=== PATIENT | female | born 1985 | race American Indian/Alaskan Native ===

== ENCOUNTER 2020-05-19 08:41 | Outpatient (CLI) | payer OTHER ==
[2020-05-19 09:11] VITALS: BP 118/61
[2020-05-19] MEDS ORDERED: LACTATED RINGERS 500 ML IV ONE (11:00)
--- NOTE | 2020-05-19 11:18 | Ultrasound Report ---
. ULTRASOUND OBSTETRIC LIMITED INDICATION / CLINICAL INFORMATION: bleeding , placenta/ heart tone.. Clinical Gestational Age (GA) in weeks, days: TECHNIQUE: Transabdominal. COMPARISON: None available FINDINGS: HEART RATE (beats per minute): 146 AMNIOTIC FLUID = adequate, as visualized. RIMA not measured. PRESENTATION: Transverse, head to maternal right. ADDITIONAL FINDINGS: Posterior placenta which is low lying, measuring 0.5 cm from the cervical os. No evidence of placental abruption. IMPRESSION: 1. Single live intrauterine . heart rate measures 146 bpm. 2. No acute abnormality identified. 3. Low-lying posterior placenta, measuring 0.5 cm from the cervical os. Recommend follow-up ultrasoun d between weeks 28 and 32. Signer Name: Darnell Hurst MD Signed: 05/19/2020 11:14 AM Workstation Name: [id number]
== END 2020-05-19 10:10 | disposition home or self-care (01) ==
LOC: APU 08:41 → TRG 08:41
PROVIDERS: ATTEND Obstetrics & Gynecology
DX: O46.8X2 Other antepartum hemorrhage, second trimester (principal); Z3A.22 22 weeks gestation of pregnancy
CPT/HCPCS: 59025; 76815

== ENCOUNTER 2020-09-16 01:02 | Inpatient (IN) | payer OTHER ==
[2020-09-16 02:26] LABS: Hematocrit 32.4 % (30.3-42.9); Hemoglobin 11.1 gm/dl (10.1-14.3); Mean Corpuscular HGB Conc 34 % (30-34); Mean Corpuscular Volume 92 fl (79-97); Platelet Count 180 K/mm3 (140-440); Red Blood Count 3.54 M/mm3 (3.65-5.03); Red Cell Distribution Width 14.4 % (13.2-15.2)
[2020-09-16 02:28] LABS: Bilirubin,Urine NEG (Negative); Blood,Urine NEG (Negative); Color,Urine Yellow (Yellow); Mucus,Urine 1+ /HPF; Urobilinogen,Urine < 2.0 mg/dL (<2.0)
[2020-09-16 02:49] LABS: Alanine Aminotransferase 12 units/L (7-56); Uric Acid 4.4 mg/dL (3.5-7.6)
[2020-09-16] MEDS ORDERED: LIDOCAINE (2%) 20 MG/1 ML VIAL 20 ML MDV INFILTRATI ONE (03:00)
[2020-09-16] MEDS ORDERED: fentaNYL 100 MCG/2 ML INJ IV PRN (03:00)
[2020-09-16] MEDS ORDERED: TERBUTALINE 1 MG/1 ML INJ SUB-Q PRN (03:00)
[2020-09-16] MEDS ORDERED: ONDANSETRON 4 MG/2 ML INJ IV PRN (03:00)
[2020-09-16] MEDS ORDERED: OXYTOCIN DRIP 30 UNITS/500 ML BAG IV SCH ×3 (03:00→10:00)
[2020-09-16] MEDS ORDERED: MINERAL OIL 30 ML ORAL LIQD PO PRN (03:00)
[2020-09-16] MEDS ORDERED: ePHEDrine SULFATE 50 MG/1 ML INJ IV PRN (03:00)
--- NOTE | 2020-09-16 03:08 | Ultrasound Report ---
ULTRASOUND OBSTETRIC LIMITED ULTRASOUND BIOPHYSICAL PROFILE INDICATION / CLINICAL INFORMATION: WELLBEING. RIMA. Clinical Gestational Age (GA): 39.4 weeks.days COMPARISON: None available. FINDINGS: BREATHING MOVEMENT = 2 GROSS BODY MOVEMENT = 2 TONE = 2 QUALITATIVE AMNIOTIC FLUID VOLUME = 2 TOTAL BIOPHYSICAL SCORE = 8/8 HEART RATE (beats per minute): 134 AMNIOTIC FLUID INDEX (cm) = 4.1 (normal = 7-24 cm). The deepest vertical pocket measures 2.6 cm. PRESENTATION: Cephalic. ADDITIONAL FINDINGS: None. IMPRESSION: 1. Biophysical Score = 8/8 2. RIMA 4.1 cm Signer Name: Td Quintero MD Signed: 09/16/2020 3:04 AM Workstation Name: [email or web address]
[2020-09-16] MEDS ORDERED: AMPICILLIN/NS 2 GM/100 ML 2 GM/100 ML BAG IV ONE (03:47)
[2020-09-16] MEDS: LACTATED RINGERS 1,000 ML IV SCH ×4 (03:56→12:23)
--- NOTE | 2020-09-16 07:51 | History and Physical Report ---
History of Present Illness Date of examination: 09/16/20 Date of admission: 09/16/20 03:04 Chief complaint: "I've been having contractions since 2099.' History of present illness: 35 y/o presented @ 39.4 wks with c/o uc since 2099. She denies LOF admits to small amt of vag bleeding x 2 episodes, and active FM. Pt initiated her pnc at [facility] ob-hammerer tab in early preg and had no complications per pt. Pt admitted to [facility] and states she has been taking Valtrex for same. Pt's BPP was 6/8 with an RIMA of 4.1. Her b/p was slightly elevated at 140s/90s. Pt denied medley, visual problems, or epigastric pain. She was admitted to L&D for an IOL r/t PIH and oligo. Rom plus was neg. Pt's PN records were not available. Past History Past Medical History: no pertinent history Past Surgical History: no surgical history [employer] COUNSELOR History: herpes Family/Genetic History: hypertension, stroke, cancer Social history: no significant social history, full code - Obstetrical History Expected Date of Delivery: 09/19/20 Actual Gestation: 39 Week(s) 4 Day(s) : 3 Para: 2 Hx # Term Pregnancies: 2 Number of Living Children: 2 Medications and Allergies Allergies Allergy/AdvReac Type Severity Reaction Status Date / Time No Known Allergies Allergy Unverified 05/19/20 09:22 Home Medications Medication Instructions Recorded Confirmed Last Taken Type 147/Iron/Folic Acid 1 caplet PO DAILY 09/16/20 09/16/20 09/15/20 08:46 History 1 Active Meds: Active Medications Ephedrine Sulfate (Ephedrine Sulfate 50 Mg/1 Ml Inj) 10 mg IV Q2M PRN PRN Reason: Hypotension Fentanyl (Fentanyl 100 Mcg/2 Ml Inj) 100 mcg IV Q2H PRN PRN Reason: Pain,Severe (7-10) LABOR PAIN Last Admin: 09/16/20 04:36 Dose: 100 mcg Documented by: Lactated Ringer's (Lactated Ringers) 1,000 mls @ 125 mls/hr IV DIRECT MITCH Last Admin: 09/16/20 03:56 Dose: 125 mls/hr Documented by: Oxytocin/Sodium Chloride (Pitocin/Ns 30 Unit/500ml) 30 units in 500 mls @ 40 mls/hr IV TITR MITCH; Protocol Mineral Oil (Mineral Oil 30 Ml Oral Liqd) 30 ml PO QHS PRN PRN Reason: Constipation Ondansetron HCl (Ondansetron 4 Mg/2 Ml Inj) 4 mg IV Q8H PRN PRN Reason: Nausea And Vomiting Terbutaline Sulfate (Terbutaline 1 Mg/1 Ml Inj) 0.25 mg SUB-Q ONCE PRN PRN Reason: Hyperstimulation/Hypertonicity Review of Systems All systems: negative Eyes: deferred Ears, nose, mouth and throat: deferred Breasts: normal Genitourinary: normal appearance Rectal Exam: deferred Psychiatric: anxiety - Vital Signs Vital signs: Vital Signs Pulse BP 74 149/94 09/16/20 01:25 09/16/20 01:25 Temp Pulse Resp BP Pulse Ox 98.5 F 69 16 139/92 97 09/16/20 07:39 09/16/20 07:44 09/16/20 07:39 09/16/20 07:32 09/16/20 07:44 - Physical Exam Breasts: Positive: normal Abdomen: Positive: normal appearance, soft, normal bowel sounds Genitourinary (Female): Positive: normal external genitalia, normal perenium Vulva: both: normal Vagina: Positive: normal moisture Uterus: Positive: enlarged, normal contour, other (GRAVID) Anus/Rectum: Positive: normal perianal skin Extremities: Positive: normal - Obstetrical FHR: category 1 Uterine Contraction Monitor Mode: External Cervical Dilatation: 2 Cervical Effacement Percentage: 60 station: -3 Uterine Contraction Pattern: Irregular Uterine Tone Measurement Phase: Resting Uterine Contraction Intensity: Mild Results Result Diagrams: 09/16/20 02:10 09/16/20 02:10 Abnormal lab results 09/16/20 09/16/20 Range/Units 02:10 02:10 RBC 3.54 L (3.65-5.03) M/mm3 Creatinine 0.5 L (0.6-1.2) mg/dL All other labs normal. Assessment and Plan A: IUP@ 39.4 wks PIH, Oligo RIMA (4.1) neg ROM plus BPP 6/8 HSV II p: Admit to L&D for IOL PIH labs Continuous monitoring Pain med/Epidural prn Obtain records from [facility] Anticipate Dr Dominguez consulted
[2020-09-16] MEDS ORDERED: BUTORPHANOL 2 MG/1 ML INJ IV PRN ×2 (09:06)
[2020-09-16] MEDS ORDERED: LIDOCAINE (2%) 20 MG/1 ML VIAL 20 ML MDV INFILTRATI NR (09:06)
[2020-09-16 10:04] LABS: Hematocrit 31.7 % (30.3-42.9); Hemoglobin 10.6 gm/dl (10.1-14.3)
--- NOTE | 2020-09-16 10:11 | Progress Note ---
Labor Epidural - Labor Epidural Start Time: 10:30 Stop Time: 10:35 Performed by:: EDGAR ROSS Procedure: Patient is requesting a laboring epidural for laboring pain. Patient IDed, H&P reviewed, all questions and concerns were answered, and consent was signed. Timeout was performed at bedside. Patient in sitting position. Sterile prep and drape was performed. [3] ml of 1% lidocaine skin wheal at L[3]- L [4]. 18- gauge Tuohy epidural needle was advanced to loss of resistance with saline technique 6cm. Negative CSF negative blood. Epidural catheter advanced to [10] centimeters. [NEGATIVE] Aspiration [NEGATIVE] test dose 1.5% Lidocaine with Epi 5ml. Sterile dressing applied. Patient tolerated procedure.
--- NOTE | 2020-09-16 10:11 | Anesthesia Consultation ---
Anesthesia Consult and Med Hx Date of service: 09/16/20 - Airway Anesthetic Teeth Evaluation: Good ROM Head & Neck: Adequate Mental/Hyoid Distance: Adequate Mallampati Class: Class II Intubation Access Assessment: Good - Pulmonary Exam CTA: Yes - Cardiac Exam Cardiac Exam: RRR - Pre-Operative Health Status ASA Pre-Surgery Classification: ASA3 Proposed Anesthetic Plan: Epidural - Pulmonary Hx Smoking: No Hx Asthma: No Hx Respiratory Symptoms: No SOB: No COPD: No Home Oxygen Therapy: No Hx Pneumonia: No Hx Sleep Apnea: No - Cardiovascular System Hx Hypertension: No Hx Coronary Artery Disease: No Hx Heart Attack/AMI: No Hx Angina: No Hx Percutaneous Transluminal Coronary Angioplasty (PTCA): No Hx Cardia Arrhythmia: No Hx Pacemaker: No Hx Internal Defibrillator: No Hx Valvular Heart Disease: No Hx Heart Murmur: No Hx Peripheral Vascular Disease: No - Central Nervous System Hx Neuromuscular Disorder: No Hx Seizures: No CVA: No Hx Back Pain: Yes (swelling noted) Hx Psychiatric Problems: No - Gastrointestinal Hx Ulcer: No Hx Gastroesophageal Reflux Disease: Yes - Endocrine Hx Renal Disease: No Hx End Stage Renal Disease: No Hx Cirrhosis: No Hx Liver Disease: No Hx Insulin Dependent Diabetes: No Hx Non-Insulin Dependent Diabetes: No Hx Thyroid Disease: No Hx Hypothyroidism: No Hx Hyperthyroidism: No - Hematic Hx Anemia: No Hx Sickle Cell Disease: No - Other Systems Hx Alcohol Use: No Hx Substance Use: No Hx Cancer: No Hx Obesity: Yes
[2020-09-16] MEDS ORDERED: NALOXONE 2 MG/2 ML INJ IV PRN (11:00)
[2020-09-16] MEDS ORDERED: fentaNYL-BUPIV 2 MCG/ML-0.125% 200 MCG/100 ML BAG EPIDURAL SCH (11:00)
--- NOTE | 2020-09-16 11:50 | Event Note ---
Date: 09/16/20 Assumed care of patient; SVE at 11:30 AM: .
[2020-09-16] MEDS: ePHEDrine SULFATE 50 MG/1 ML INJ IV PRN ×2 (12:22→12:26)
[2020-09-16] MEDS ORDERED: WITCH HAZEL/ GLYCERIN PAD TP PRN (18:09)
[2020-09-16] MEDS ORDERED: LANOLIN/ZINC/DIMETHICONE (LANSINOH) 7 GM TP PRN (18:09)
--- NOTE | 2020-09-16 18:12 | Procedure Note ---
OB Delivery Note - Delivery Date of Delivery: 09/16/20 Surgeon: SILVA BERRIOS Estimated blood loss: 200cc - Vaginal Delivery presentation: vertex Delivery position: OA Intrapartum events: meconium Delivery induction: oxytocin Delivery augmentation: rupture of membranes Delivery monitor: external FHT, external uterine Route of delivery: Delivery placenta: spontaneous Delivery cord: 3 umbilical vessels Episiotomy: none Delivery laceration: none Anesthesia: epidural Delivery comments: Spontaneous vaginal delivery at 17:37 of liveborn male infant weighing 6 lb. 4 oz. over intact perineum with apgars of 8/9. was atraumatic; no nuchal cord. Meconium stained amniotic fluid. Baby was vigorous at . Baby was placed skin to skin with mom immediately after delivery and was dried and suctioned with bulb syringe. Spontaneous cry and respirations. 3 vessel cord double clamped and cut. Baby was taken to radiant warmer for further suctioning. Cord blood obtained. Spontaneous delivery of intact placenta and membranes; membranes trailing. Pitocin to IV fluids; EBL 200 cc. Fundus firm and midline. Vaginal sweep negative. Sponge count correct. No lacerations noted. Pelvic US ordered to check for retained placenta/accessory lobe due to trailing membranes.
--- NOTE | 2020-09-16 19:32 | Ultrasound Report ---
Limited pelvic ultrasound INDICATION: Evaluate for retained products FINDINGS: Uterus is enlarged measuring 20.7 x 10.9 x 12.4 cm. Endometrial is thickened measuring 21.8 mm. There is increased flow within the endometrium and uterus. Bilateral adnexa appear normal. IMPRESSION: Uterus is enlarged. There is increased flow within the endometrium concerning for retained products o f conception. Signer Name: Sumit Hays MD Signed: 09/16/2020 7:28 PM Workstation Name: [id number]
[2020-09-16] MEDS: FERROUS SULFATE 325 MG TAB PO SCH (22:04)
[2020-09-16] MEDS: IBUPROFEN 600 MG TAB PO SCH (22:04)
[2020-09-17] MEDS: IBUPROFEN 600 MG TAB PO SCH ×4 (00:27→21:12)
--- NOTE | 2020-09-17 06:45 | Progress Note ---
Assessment and Plan A: day 1 S/P . Mild anemia. Possible abnormal pelvic US. P: Patient to take oral iron supplements. Repeat H&H and pelvic US. Will consult with re: this patient. Subjective - Subjective Date of service: 09/17/20 Principal diagnosis: day 1 S/P Interval history: After delivery US was obtained due to trailing membranes noted at delivery. US tech stated (at time of US) that there were no retained products. Final US report now available and states "increased flow within the uterus concerning for retained products." Patient denies pelvic pain or heavy bleeding. Pt. reports lochia is light. With history of HTN and occasional mild BP elevation, want to avoid PO Methergine series if possible. Will consult with Dr. Dominguez and will repeat pelvic US and H/H today. Patient reports: appetite normal, voiding normally, pain well controlled, flatus, ambulating normally, no dizzy ambulation, no nauseated : doing well Objective - Vital Signs Latest vital signs: Vital Signs Temp Pulse Resp BP Pulse Ox 09/17/20 05:42 18 09/17/20 01:20 98.2 F 20 131/60 09/16/20 23:04 18 09/16/20 22:04 18 09/16/20 20:11 98.4 F 73 20 140/83 100 09/16/20 19:25 74 99 09/16/20 19:23 97.7 F 14 09/16/20 19:22 60 132/77 09/16/20 19:20 82 97 09/16/20 19:15 64 99 09/16/20 19:10 67 98 09/16/20 19:08 63 140/79 09/16/20 19:05 68 98 09/16/20 19:00 66 98 09/16/20 18:55 82 99 09/16/20 18:53 83 137/88 09/16/20 18:50 85 98 09/16/20 18:45 75 97 09/16/20 18:40 83 98 09/16/20 18:38 71 135/80 09/16/20 18:35 64 96 09/16/20 18:30 65 97 09/16/20 18:25 71 96 09/16/20 18:23 72 132/78 09/16/20 18:20 73 96 09/16/20 18:15 76 96 09/16/20 18:10 81 95 09/16/20 18:08 73 132/74 09/16/20 18:05 88 96 09/16/20 18:00 98.1 F 88 98 09/16/20 17:55 80 99 09/16/20 17:54 73 126/73 09/16/20 17:53 70 122/62 09/16/20 17:50 72 100 09/16/20 17:45 78 100 09/16/20 17:40 87 100 09/16/20 17:38 132/78 09/16/20 17:35 89 100 09/16/20 17:30 87 100 09/16/20 17:25 81 100 09/16/20 17:24 78 135/79 09/16/20 17:20 71 100 09/16/20 17:15 65 100 09/16/20 17:10 64 100 09/16/20 17:08 64 146/82 09/16/20 17:05 70 100 09/16/20 17:00 62 100 09/16/20 16:55 98.1 F 63 100 09/16/20 16:53 68 143/88 09/16/20 16:50 64 100 09/16/20 16:45 77 100 09/16/20 16:40 70 100 09/16/20 16:38 69 139/84 09/16/20 16:35 70 100 09/16/20 16:30 85 100 09/16/20 16:25 69 100 09/16/20 16:24 66 141/88 09/16/20 16:20 71 100 09/16/20 16:15 76 100 09/16/20 16:10 76 131/78 100 09/16/20 16:05 77 100 09/16/20 16:00 68 100 09/16/20 15:55 67 100 09/16/20 15:53 74 125/76 09/16/20 15:50 68 100 09/16/20 15:45 71 100 09/16/20 15:40 70 100 09/16/20 15:38 68 133/74 09/16/20 15:35 71 100 09/16/20 15:30 79 100 09/16/20 15:25 69 100 09/16/20 15:23 65 127/78 04/30/21 15:20 67 100 09/16/20 15:15 73 100 09/16/20 15:10 75 100 09/16/20 15:09 67 119/74 09/16/20 15:05 66 100 09/16/20 15:00 65 100 09/16/20 14:55 70 100 09/16/20 14:54 63 127/73 09/16/20 14:50 74 100 09/16/20 14:45 63 100 09/16/20 14:40 65 100 09/16/20 14:39 65 121/81 09/16/20 14:35 76 100 09/16/20 14:30 98.5 F 63 100 09/16/20 14:25 66 100 09/16/20 14:23 68 119/69 09/16/20 14:20 66 100 09/16/20 14:15 67 100 09/16/20 14:10 74 100 09/16/20 14:05 63 100 09/16/20 14:00 75 116/61 100 09/16/20 13:59 84 164/68 09/16/20 13:55 73 100 09/16/20 13:50 60 100 09/16/20 13:45 58 L 100 09/16/20 13:40 57 L 100 09/16/20 13:38 54 L 111/63 09/16/20 13:35 57 L 100 09/16/20 13:30 57 L 100 09/16/20 13:25 56 L 100 09/16/20 13:23 57 L 108/61 09/16/20 13:21 58 L 109/57 09/16/20 13:20 56 L 100 09/16/20 13:15 56 L 100 09/16/20 13:10 61 100 09/16/20 13:08 57 L 104/58 09/16/20 13:05 62 100 09/16/20 13:00 63 100 09/16/20 12:55 62 100 09/16/20 12:52 66 122/72 09/16/20 12:50 65 100 09/16/20 12:45 64 100 09/16/20 12:41 63 118/71 09/16/20 12:40 66 100 09/16/20 12:39 71 104/66 09/16/20 12:37 74 113/68 09/16/20 12:35 68 114/69 100 09/16/20 12:33 61 120/74 09/16/20 12:31 72 110/70 09/16/20 12:30 70 100 09/16/20 12:29 71 110/69 09/16/20 12:27 63 109/67 09/16/20 12:25 61 112/69 100 09/16/20 12:23 58 L 113/58 09/16/20 12:20 61 100 09/16/20 12:19 64 103/64 09/16/20 12:17 71 105/66 09/16/20 12:15 57 L 100 09/16/20 12:10 67 100 09/16/20 12:05 58 L 100 09/16/20 12:01 61 134/85 09/16/20 12:00 60 100 09/16/20 11:55 60 100 09/16/20 11:50 69 100 09/16/20 11:46 67 138/89 09/16/20 11:45 70 100 09/16/20 11:40 76 100 09/16/20 11:35 67 100 09/16/20 11:31 74 138/90 09/16/20 11:30 80 100 09/16/20 11:25 89 99 09/16/20 11:20 101 H 99 09/16/20 11:16 83 126/71 09/16/20 11:02 104 H 134/83 98 09/16/20 10:57 84 97 09/16/20 10:52 94 H 98 09/16/20 10:47 96 H 141/93 99 09/16/20 10:42 85 99 09/16/20 10:33 100 H 89 09/16/20 10:31 111 H 164/74 09/16/20 10:30 109 H 98 09/16/20 10:25 98 H 99 09/16/20 10:23 95 H 88 09/16/20 10:20 103 H 97 09/16/20 10:17 104 H 142/92 09/16/20 10:15 88 99 09/16/20 10:10 97 H 98 09/16/20 10:05 86 98 09/16/20 10:01 82 159/92 09/16/20 10:00 91 H 98 09/16/20 09:55 78 99 09/16/20 09:50 77 99 09/16/20 09:45 79 100 09/16/20 09:42 85 88 09/16/20 09:40 84 99 09/16/20 09:35 76 99 09/16/20 09:32 77 132/89 09/16/20 09:30 97 H 98 09/16/20 09:26 86 85 09/16/20 09:25 76 L 09/16/20 09:16 90 138/98 09/16/20 09:01 77 135/85 09/16/20 09:00 98.2 F 76 97 09/16/20 08:55 95 H 98 09/16/20 08:46 84 143/90 09/16/20 08:44 82 98 09/16/20 08:39 77 98 09/16/20 08:34 85 99 09/16/20 08:31 74 146/88 09/16/20 08:29 66 97 09/16/20 08:24 69 96 09/16/20 08:19 69 96 09/16/20 08:17 65 156/88 09/16/20 08:14 73 97 09/16/20 08:09 68 98 09/16/20 08:04 71 96 09/16/20 08:01 100 H 131/90 09/16/20 07:59 72 98 09/16/20 07:54 74 98 09/16/20 07:49 84 98 09/16/20 07:46 80 128/90 09/16/20 07:44 69 97 09/16/20 07:39 98.5 F 67 16 98 09/16/20 07:34 73 99 09/16/20 07:32 73 139/92 09/16/20 07:29 68 99 09/16/20 07:24 69 98 09/16/20 07:19 83 99 09/16/20 07:14 82 98 09/16/20 07:06 72 100 09/16/20 07:01 80 141/87 97 09/16/20 07:00 81 149/88 09/16/20 06:58 83 94 09/16/20 06:56 81 98 09/16/20 06:51 66 97 09/16/20 06:46 75 154/95 97 Intake and Output 04/30/21 04/30/21 05/01/21 15:59 23:59 07:59 Intake Total 993.333 480 240 Output Total 900 1050 Balance 93.333 -570 240 Intake: IV 593.333 Lactated Ringers 1,000 ml 591.666 @ 125 mls/hr IV DIRECT MITCH Rx#:[id number] PITOCin/NS 30 UNIT/500ML 1.667 30 units In 500 ml @ 2 mls/hr IV TITR MITCH Rx#: [id number] Oral 400 480 240 Output: Urine 900 1050 Indwelling Catheter 800 1050 Uretheral (Leroy) 100 Other: Total, Intake Amount 400 480 240 Total, Output Amount 700 350 # Voids Indwelling Catheter 1 Void 1 2 Estimated Blood Loss 200 - Exam Abdomen: Present: normal appearance, soft. Absent: distention, tenderness, guarding, rigidity Uterus: Present: normal, firm, fundal height below umbilicus. Absent: bogginess, tenderness Extremities: Present: normal. Absent: tenderness, edema - Labs Labs: Abnormal lab results 09/16/20 Range/Units 02:10 Lactate Dehydrogenase 183 H (91-180) units/L
[2020-09-17] MEDS: HYDROcodone/ACETAMINOPHEN 5-325 MG TAB PO PRN ×2 (08:40→16:54)
--- NOTE | 2020-09-17 12:17 | Post Anesthesia Evaluation ---
- Post Anesthesia Evaluation Patient Participated: Yes Airway Patent: Yes Stable Respiratory Function: Yes Nausea/Vomiting: No Temp > 96.8F: Yes Pain Manageable: Yes Adequeate Hydration: Yes Anesthesia Complications: No Block Receding Appropriately: Yes Patient on Ventilator: No
[2020-09-17 14:58] LABS: Hematocrit 28.6 % (30.3-42.9); Hemoglobin 9.7 gm/dl (10.1-14.3)
--- NOTE | 2020-09-17 15:14 | Ultrasound Report ---
Pelvic ultrasound INDICATION: Evaluate for retained products FINDINGS: There is a complex lesion within the left aspect of the uterus with internal septation and thickening measuring 1.9 x 4.5 cm. The endometrium is thickened measuring 1.4 cm. No focal area of fl ow within the endometrium. Visualized ovaries appear normal. IMPRESSION: 1. Complex cystic mass within the uterus measuring 1.9 x 4.5 cm. Findings are nonspecific however cli nical correlation. 2. Endometrium is thickened. Retained products cannot be excluded however no increased flow within th e endometrium. Signer Name: Sumit Hays MD Signed: 09/17/2020 3:09 PM Workstation Name: [id number]
[2020-09-17] MEDS: FERROUS SULFATE 325 MG TAB PO SCH (21:12)
[2020-09-18] MEDS: IBUPROFEN 600 MG TAB PO SCH ×4 (06:14→22:44)
[2020-09-18] MEDS: FERROUS SULFATE 325 MG TAB PO SCH ×2 (08:32→22:43)
--- NOTE | 2020-09-18 09:39 | Progress Note ---
Assessment and Plan A: day 2 S/P . Possible retained placenta (abnormal pelvic US). Anemia. Heart murmur. PIH: stable BPs. P: NPO. Dr. Dominguez is coming in around noon today to perform D&C procedure due to possible retained products. Discussed possible retained products with patient and need for D&C. Patient states she is in agreement with this POC. Informed patient's nurse and L&D. L&D to put patient on OR schedule and notify anesthesia. Heart murmur is asymptomatic; patient wants to follow up as outpatient once she is discharged. Continue iron supplementation. Subjective - Subjective Date of service: 09/18/20 Principal diagnosis: day 2 S/P Interval history: Repeat US report shows "complex cystic mass within the uterus measuring 1.9 cm x 4.5 cm, findings are nonspecific, retained products cannot be excluded however no increased flow within the endometrium." Patient denies heavy bleeding. Consulted with Dr. Dominguez re: this patient and he states he is going to perform D&C for patient today. Informed patient and nurse and patient is now NPO. Patient reports: appetite normal, voiding normally, pain well controlled, flatus, ambulating normally, no bowel movement [place]: doing well Objective - Vital Signs Latest vital signs: Vital Signs Temp Pulse Resp BP Pulse Ox 09/18/20 07:55 98.5 F 83 20 124/70 95 09/18/20 06:14 18 09/18/20 00:46 98.0 F 81 20 133/82 96 09/17/20 22:12 18 09/17/20 21:12 18 09/17/20 16:08 98.6 F 79 18 128/77 97 09/17/20 11:54 98.1 F 75 18 149/91 97 Intake and Output 09/17/20 09/18/20 09/18/20 23:59 07:59 15:59 Intake Total 480 240 Balance 480 240 Intake: Oral 480 240 Other: Total, Intake Amount 240 240 # Voids Void 1 1 - Exam Cardiovascular: Present: Regular rate, Other (murmur heard) Lungs: Present: Clear to auscultation Abdomen: Present: normal appearance, soft. Absent: tenderness, guarding, rigidity Uterus: Present: normal, firm, fundal height below umbilicus. Absent: bogginess, tenderness - Labs Labs: Abnormal lab results 09/17/20 Range/Units 13:29 Hgb 9.7 L (10.1-14.3) gm/dl Hct 28.6 L (30.3-42.9) %
[2020-09-18] MEDS: DOCUSATE SODIUM 100 MG CAP PO SCH ×2 (10:21→22:44)
[2020-09-18] MEDS ORDERED: LIDOCAINE MPF (2%) 20 MG/1 ML VIAL 5 ML ONE (16:47)
[2020-09-18] MEDS ORDERED: HYDROmorphone 1 MG/1 ML INJ ONE (16:47)
[2020-09-18] MEDS ORDERED: propofoL 200 MG/20 ML VIAL IV ONE (16:47)
[2020-09-18] MEDS ORDERED: ONDANSETRON 4 MG/2 ML INJ IV PRN ×2 (16:58→17:48)
[2020-09-18] MEDS ORDERED: fentaNYL 100 MCG/2 ML INJ IV PRN (16:58)
[2020-09-18] MEDS ORDERED: KETOROLAC 30 MG/1 ML INJ IV PRN (16:59)
--- NOTE | 2020-09-18 17:03 | Anesthesia Consultation ---
Anesthesia Consult and Med Hx Date of service: 09/18/20 - Airway Anesthetic Teeth Evaluation: Good ROM Head & Neck: Adequate Mental/Hyoid Distance: Adequate Mallampati Class: Class II Intubation Access Assessment: Probably Good - Pre-Operative Health Status ASA Pre-Surgery Classification: ASA2 Proposed Anesthetic Plan: General - Pulmonary Hx Respiratory Symptoms: No - Cardiovascular System Hx Hypertension: Yes (PIH; BP well controlled) Hx Heart Attack/AMI: No - Central Nervous System CVA: No Hx Back Pain: Yes - Gastrointestinal Hx Gastroesophageal Reflux Disease: Yes - Endocrine Hx Renal Disease: No Hx Liver Disease: No Hx Insulin Dependent Diabetes: No Hx Non-Insulin Dependent Diabetes: No Hx Thyroid Disease: No - Hematic Hx Anemia: Yes - Additional Comments Anesthesia Medical History Comments: PPD2 s/p scheduled for D&C for possible retained placenta.
--- NOTE | 2020-09-18 17:05 | Anesthesia Day of Surgery ---
Anesthesia Day of Surgery - Day of Surgery Patient Examined: Yes Patient H&P Reviewed: Yes Patient is NPO: Yes
[2020-09-18] MEDS ORDERED: LACTATED RINGERS 1,000 ML ONE (17:17)
[2020-09-18] MEDS ORDERED: ceFAZolin 1 GM VIAL ONE ×2 (17:32→17:34)
[2020-09-18] MEDS ORDERED: ONDANSETRON 4 MG/2 ML INJ ONE (17:42)
[2020-09-18] MEDS ORDERED: KETOROLAC 30 MG/1 ML INJ ONE (17:42)
[2020-09-18] MEDS ORDERED: diphenhydrAMINE 25 MG CAP PO PRN (17:48)
[2020-09-18] MEDS ORDERED: MAGNESIUM HYDROXIDE (MOM) ORAL LIQD UDC PO PRN (17:48)
[2020-09-18] MEDS ORDERED: HYDROcodone/ACETAMINOPHEN 5-325 MG TAB PO PRN (17:48)
[2020-09-18] MEDS ORDERED: WITCH HAZEL/ GLYCERIN PAD TP PRN (17:48)
[2020-09-18] MEDS ORDERED: PROMETHAZINE 25 MG TAB PO PRN (17:48)
[2020-09-18] MEDS ORDERED: LANOLIN/ZINC/DIMETHICONE (LANSINOH) 7 GM TP PRN (17:48)
[2020-09-18] MEDS ORDERED: PROMETHAZINE 25 MG RECT SUPP PR PRN (17:48)
--- NOTE | 2020-09-18 17:55 | Procedure Note ---
Date of procedure: 09/18/20 Pre-op diagnosis: retained placenta Post-op diagnosis: same Procedure: The patient was taken to the OR for removal of retained placenta. Preoperative diagnosis retained placenta. Postop diagnosis retained placenta. Anesthesia General with LMA. Drains in and out catheterization is History of blood loss 150 cc specimen blood and tissue from inside endometrial cavity. Procedure was a D&C suction curettage the D&C was done with a large curette. Complications none. Findings patient was found to have a somewhat boggy uterus was anteflexed cervix was slightly dilated. Uterus and cervix were grasped with ring forceps using large curette to curette the uterus and to return uterus was clean. We also did suction curettage to remove any tissue that was inside endometrial cavity patient had minimal bleeding at the end of procedure she tolerated procedure well. Anesthesia: GETA (LMA) Surgeon: MARTÍNEZ PERKINS Estimated blood loss: other (150CCS) Urine output: 50 Pathology: list (ENDOMETRIAL CURRETTINGS) Specimen disposition: to lab Condition: stable Disposition: PACU
[2020-09-18] MEDS ORDERED: SODIUM CHLORIDE 0.9% IRR 1,500 ML BOTTLE IR ONE (18:01)
[2020-09-18] MEDS ORDERED: HYDROmorphone 1 MG/1 ML INJ IV PRN (18:09)
--- NOTE | 2020-09-18 18:38 | Post Anesthesia Evaluation ---
- Post Anesthesia Evaluation Patient Participated: Yes Airway Patent: Yes Stable Respiratory Function: Yes Nausea/Vomiting: No Temp > 96.8F: Yes Pain Manageable: Yes Adequeate Hydration: Yes Anesthesia Complications: No
[2020-09-19] MEDS: IBUPROFEN 600 MG TAB PO SCH ×2 (05:20→05:54)
[2020-09-19] MEDS: FERROUS SULFATE 325 MG TAB PO SCH (09:28)
[2020-09-19] MEDS: DOCUSATE SODIUM 100 MG CAP PO SCH (09:31)
[2020-09-19 11:46] LABS: Basophils % (Auto) 0.5 % (0.0-1.8); Eosinophils # (Auto) 0.3 K/mm3 (0.0-0.4); Eosinophils % (Auto) 2.5 % (0.0-4.3); Hematocrit 29.9 % (30.3-42.9); Lymphocytes # (Auto) 1.7 K/mm3 (1.2-5.4); Lymphocytes % (Auto) 17.3 % (13.4-35.0); Mean Corpuscular HGB Conc 34 % (30-34); Mean Corpuscular Volume 94 fl (79-97); Monocytes # (Auto) 0.6 K/mm3 (0.0-0.8); Monocytes % (Auto) 5.8 % (0.0-7.3); Platelet Count 197 K/mm3 (140-440); Red Blood Count 3.19 M/mm3 (3.65-5.03); Red Cell Distribution Width 15.2 % (13.2-15.2)
--- NOTE | 2020-09-19 13:18 | Progress Note ---
Assessment and Plan A: PP Day # 3 Preeclampsia s/p Retained Placenta P: Follow Routine Orders D/C home today per patient request RTO in 2 Weeks Subjective - Subjective Date of service: 09/19/20 Principal diagnosis: day 2 S/P Patient reports: appetite normal, voiding normally, pain well controlled, flatus, bowel movement, ambulating normally, other (Denies HAs, visual changes, epigastic pain , N&V, and dizziness. States she is not having any vaginal bleeding at the moment) : doing well, bottle feeding (and ) Objective - Vital Signs Latest vital signs: Vital Signs Temp Pulse Resp BP BP Pulse Ox 09/19/20 09:29 16 09/19/20 09:14 98.4 F 80 18 142/81 94 09/19/20 05:54 14 09/19/20 05:24 98.2 F 77 18 116/71 95 09/19/20 01:27 98.6 F 78 18 118/69 95 09/18/20 22:44 14 09/18/20 18:45 98.0 F 80 15 148/80 99 09/18/20 18:40 98.0 F 70 15 124/75 96 09/18/20 18:25 69 17 120/83 98 09/18/20 18:19 15 09/18/20 18:10 73 15 140/82 100 09/18/20 18:05 70 18 135/80 100 09/18/20 18:00 80 17 136/81 99 09/18/20 17:53 97.0 F L 87 16 141/93 99 09/18/20 16:34 98.8 F 83 18 135/83 97 09/18/20 16:10 98.8 F 77 16 135/83 97 Intake and Output 09/18/20 09/19/20 09/19/20 22:59 06:59 14:59 Intake Total 100 660 Output Total 50 Balance 50 660 Intake: IV 100 Oral 0 Intake, Free Water 660 Output: Urine 50 Other: Total, Intake Amount 0 # Voids Void 3 1 - Exam Breasts: Present: normal Cardiovascular: Present: Regular rate Lungs: Present: Clear to auscultation, Normal air movement Abdomen: Present: normal appearance, soft, normal bowel sounds Uterus: Present: normal, firm, fundal height below umbilicus Extremities: Present: normal - Labs Labs: Abnormal lab results 09/19/20 Range/Units 11:04 RBC 3.19 L (3.65-5.03) M/mm3 Hgb 10.0 L (10.1-14.3) gm/dl Hct 29.9 L (30.3-42.9) % Seg Neutrophils % 73.9 H (40.0-70.0) %
--- NOTE | 2020-09-19 13:19 | Discharge Summary ---
Providers - Providers Date of Admission: 09/16/20 03:04 Date of discharge: 09/19/20 Attending physician: OZZY MUNROE JR, MD Primary care physician: OZZY MUNROE JR, MD Hospitalization Reason for admission: active labor Delivery: Episiotomy: none Laceration: none Other procedures: none complications: none Discharge diagnosis: IUP at term delivered baby: male Condition at discharge: Good Disposition: [id number]-01 TO HOME OR SELFCARE Plan - Provider Discharge Summary Activity: routine, no sex for 6 weeks, no heavy lifting 4 weeks, no strenuous exercise Diet: routine Instructions: routine Additional instructions: [] Smoking cessation referral if applicable(refer to patient education folder for contact #) [] Refer to [facility] Booklet Call your doctor immediately for: * Fever > 100.5 * Heavy vaginal bleeding ( >1 pad per hour) * Severe persistent headache * Shortness of breath * Reddened, hot, painful area to leg or breast * Drainage or odor from incision. * Keep incision clean and dry at all times and follow doctor's instructions regarding bathing/showering - Follow up plan Follow up: OZZY MUNROE JR, MD [Primary Care Provider] - 14 Days
[2020-09-19 15:00] VITALS: BP 133/91
== END 2020-09-19 15:47 | disposition left against medical advice (07) | DRG 767 ==
LOC: TRG 01:02 → APU 01:03 → TRG 03:04 → LD 07:49 → OB 20:26
PROVIDERS: ADMIT Obstetrics & Gynecology; ATTEND Obstetrics & Gynecology
PROC: 10E0XZZ Delivery of Products of Conception, External Approach (ICD-10-PCS; principal; 2020-09-16)
PROC: 3E033VJ Introduction of Other Hormone into Peripheral Vein, Percutaneous Approach (ICD-10-PCS; 2020-09-16)
PROC: 00HU33Z Insertion of Infusion Device into Spinal Canal, Percutaneous Approach (ICD-10-PCS; 2020-09-16)
PROC: 3E0R3BZ Introduction of Anesthetic Agent into Spinal Canal, Percutaneous Approach (ICD-10-PCS; 2020-09-16)
PROC: 10D17ZZ Extraction of Products of Conception, Retained, Via Natural or Artificial Opening (ICD-10-PCS; 2020-09-18)
DX: O99.214 Obesity complicating childbirth (principal); O41.03X0 Oligohydramnios, third trimester, not applicable or unspecified; O98.32 Other infections with a predominantly sexual mode of transmission complicating childbirth; Z20.822 Contact with and (suspected) exposure to COVID-19; A60.09 Herpesviral infection of other urogenital tract; K21.9 Gastro-esophageal reflux disease without esophagitis; O77.0 Labor and delivery complicated by meconium in amniotic fluid; O90.81 Anemia of the puerperium; O14.95 Unspecified pre-eclampsia, complicating the puerperium; Z3A.39 39 weeks gestation of pregnancy; Z37.0 Single live birth; Z82.49 Family history of ischemic heart disease and other diseases of the circulatory system; Z82.3 Family history of stroke; Z80.9 Family history of malignant neoplasm, unspecified
CPT/HCPCS: 36415; 59025; 76815; 76819; 76857; 81001; 82565; 83615; 84112; 84450; 84460; 84550; 85014; 85018; 85025; 85027; 86592; 86850; 86900; 86901; 88305; 88307; G0378; J0290; J0690; J1170; J1885; J2405; J2590; J2704; J3010; J7120; U0003

== ENCOUNTER 2020-11-18 12:39 | Emergency (ER) | payer OTHER ==
[2020-11-18 14:38] LABS: Bilirubin,Urine NEG (Negative); Blood,Urine LG (Negative); Color,Urine Yellow (Yellow); Mucus,Urine FEW /HPF; Protein,Urine <15 mg/dL mg/dL (Negative); Urobilinogen,Urine < 2.0 mg/dL (<2.0)
[2020-11-18 14:50] LABS: Basophils # (Auto) 0.1 K/mm3 (0.0-0.1); Eosinophils # (Auto) 0.5 K/mm3 (0.0-0.4); Eosinophils % (Auto) 8.4 % (0.0-4.3); Hematocrit 36.5 % (30.3-42.9); Hemoglobin 12.4 gm/dl (10.1-14.3); Lymphocytes # (Auto) 2.6 K/mm3 (1.2-5.4); Lymphocytes % (Auto) 44.9 % (13.4-35.0); Mean Corpuscular HGB Conc 34 % (30-34); Mean Corpuscular Volume 96 fl (79-97); Monocytes # (Auto) 0.4 K/mm3 (0.0-0.8); Monocytes % (Auto) 7.8 % (0.0-7.3); Platelet Count 303 K/mm3 (140-440); Red Blood Count 3.82 M/mm3 (3.65-5.03); Red Cell Distribution Width 14.2 % (13.2-15.2)
--- NOTE | 2020-11-18 14:52 | Emergency Department Report ---
ED Female HPI - General Chief complaint: Vaginal Bleeding Stated complaint: BLEEDING 8WK, RT SIDE PAIN Time Seen by Provider: 11/18/20 14:08 Source: patient Mode of arrival: Ambulatory Limitations: No Limitations - History of Present Illness Initial comments: 35-year-old -[place] female who is 3 para 3 with a recent delivery of a baby on September 16, 2020. Patient reports that she has been having vaginal bleeding since she had her delivery. Patient had a D&C done on 09/19/2020. Patient states that she has been following up with her BOILER REPAIR SUPERVISOR which is at [facility] and they have placed her on Megace 40 mg twice a day. Patient states that she is having pain in her right lower quadrant. She has been going through 5 pads a day on a bad day and 3 pads a day on a fair day. Patient denies any nausea no vomiting no fever no chills she denies any dysuria having normal bowels eating well and taking ibuprofen pains a 5 out of 10. MD Complaint: vaginal bleeding, pelvic pain Onset/Timin -: month(s) Location: RLQ Severity: moderate Severity scale (0 -10): 5 Quality: cramping Consistency: intermittent Are you Now?: No Associated Symptoms: vaginal bleeding, abdominal pain. denies: nausea/vomiting, fever/chills - Related Data Sexually active: Yes Home Medications Medication Instructions Recorded Confirmed Last Taken 147/Iron/Folic Acid 1 caplet PO DAILY 09/16/20 09/16/20 09/15/20 08:46 1 Allergies Allergy/AdvReac Type Severity Reaction Status Date / Time No Known Allergies Allergy Verified 11/18/20 13:19 ED Review of Systems ROS: Stated complaint: BLEEDING 8WK, RT SIDE PAIN Other details as noted in HPI Comment: All other systems reviewed and negative ED Past Medical Hx - Past Medical History Hx Hypertension: Yes (PIH; BP well controlled) Hx Heart Attack/AMI: No Hx Congestive Heart Failure: No Hx Diabetes: No Hx Deep Vein Thrombosis: No Hx Liver Disease: No Hx Renal Disease: No Hx Sickle Cell Disease: No Hx Seizures: No Hx Asthma: No Hx COPD: No Hx HIV: No - Surgical History Hx Pacemaker: No Hx Internal Defibrillator: No - Social History Smoking Status: Never Smoker - Medications Home Medications: Home Medications Medication Instructions Recorded Confirmed Last Taken Type 147/Iron/Folic Acid 1 caplet PO DAILY 09/16/20 09/16/20 09/15/20 08:46 History 1 ED Physical Exam - General Limitations: No Limitations General appearance: alert - Head Head exam: Present: atraumatic, normocephalic - Eye Eye exam: Present: normal appearance - ENT ENT exam: Present: mucous membranes moist - Neck Neck exam: Present: normal inspection, full ROM - Respiratory Respiratory exam: Present: normal lung sounds bilaterally - Cardiovascular Cardiovascular Exam: Present: regular rate - GI/Abdominal GI/Abdominal exam: Present: soft, tenderness (rlq). Absent: distended ED Course Vital Signs 11/18/20 13:23 Temperature 99.5 F Pulse Rate 97 H Respiratory 20 Rate Blood Pressure 130/81 O2 Sat by Pulse 96 Oximetry - Consultations Consultation #1: 11/18/20 17:[address] Curtis BOILER REPAIR SUPERVISOR from [facility]. She reviewed her chart and discussed case with her. She feels patient is hemodynamically stable she can be discharged home to follow-up with her clinic. ED Medical Decision Making - Lab Data Result diagrams: 11/18/20 13:42 Laboratory Tests 11/18/20 11/18/20 11/18/20 13:42 13:42 13:42 WBC 5.7 RBC 3.82 Hgb 12.4 Hct 36.5 MCV 96 MCH 33 H MCHC 34 RDW 14.2 Plt Count 303 Lymph % (Auto) 44.9 H [place] % (Auto) 7.8 H Eos % (Auto) 8.4 H Baso % (Auto) 1.0 Lymph # (Auto) 2.6 [place] # (Auto) 0.4 Eos # (Auto) 0.5 H Baso # (Auto) 0.1 Seg Neutrophils % 37.9 L Seg Neutrophils # 2.2 HCG, Qual Negative HCG, Quant Urine Color Urine Turbidity Urine pH Ur Specific [place] Urine Protein Urine Glucose (UA) Urine Ketones Urine Blood Urine Nitrite Urine Bilirubin Urine Urobilinogen Ur Leukocyte Esterase Urine WBC (Auto) Urine RBC (Auto) U Epithel Cells (Auto) Urine Mucus Blood Type O POSITIVE 11/18/20 11/18/20 13:43 14:49 WBC RBC Hgb Hct MCV MCH MCHC RDW Plt Count Lymph % (Auto) [place] % (Auto) Eos % (Auto) Baso % (Auto) Lymph # (Auto) [place] # (Auto) Eos # (Auto) Baso # (Auto) Seg Neutrophils % Seg Neutrophils # HCG, Qual HCG, Quant < 2 Urine Color Yellow Urine Turbidity Clear Urine pH 5.0 Ur Specific [place] 1.023 Urine Protein <15 mg/dl Urine Glucose (UA) Neg Urine Ketones Neg Urine Blood Lg Urine Nitrite Neg Urine Bilirubin Neg Urine Urobilinogen < 2.0 Ur Leukocyte Esterase Neg Urine WBC (Auto) 1.0 Urine RBC (Auto) 1.0 U Epithel Cells (Auto) 2.0 Urine Mucus Few Blood Type - Medical Decision Making 35-year-old -[place] female who is 3 para 3 with a recent delivery of a baby on September 16, 2020. Patient reports that she has been having vaginal bleeding since she had her delivery. Patient had a D&C done on 09/19. Patient states that she has been following up with her BOILER REPAIR SUPERVISOR which is at [facility] and they have placed her on Megace 40 mg twice a day. Patient states that she is having pain in her right lower quadrant. She has been going through 5 pads a day on a bad day and 3 pads a day on a fair day. Patient denies any nausea no vomiting no fever no chills she denies any dysuria having normal bowels eating well and taking ibuprofen pains a 5 out of 10. Patient is hemodynamically stable. Labs are stable. Blood pressure and vitals are within normal limits. Patient can follow-up with BOILER REPAIR SUPERVISOR. Critical care attestation.: If time is entered above; I have spent that time in minutes in the direct care of this critically ill patient, excluding procedure time. ED Disposition Clinical Impression: Menorrhagia Qualifiers: Menorrhagia type: with irregular cycle Qualified Code(s): N92.1 - Excessive and frequent menstruation with irregular cycle Disposition: - TO HOME OR SELFCARE Is pt being admited?: No Does the pt Need Aspirin: No Condition: Stable Instructions: Abnormal Uterine Bleeding, [id number] Additional Instructions: Vital signs are stable labs are within normal limits. Is no signs of anemia. Spoke with BOILER REPAIR SUPERVISOR Dr. Curtis she states to follow-up in her clinic next week. Referrals: PRIMARY CARE, [Primary Care Provider] - 3-5 Days LETTY CURTIS MD [Staff Physician] - 3-5 Days
[2020-11-18 17:29] VITALS: BP 120/67
== END 2020-11-18 17:29 | disposition home or self-care (01) ==
LOC: ED 12:39
DX: N92.0 Excessive and frequent menstruation with regular cycle (principal); I10 Essential (primary) hypertension; Z79.899 Other long term (current) drug therapy
CPT/HCPCS: 36415; 81001; 84702; 84703; 85025; 86900; 86901

== ENCOUNTER 2020-12-08 07:09 | Day surgery (SDC) | payer OTHER ==
[~2020-12-08 07:09] MED LIST: LACTATED RINGERS 1,000 ML IV SCH; MIDAZOLAM 2 MG/2 ML INJ IV NR; SCOPOLAMINE TRANSDERMAL PATCH 72 HR TD NR
--- NOTE | 2020-12-08 08:03 | Anesthesia Consultation ---
Anesthesia Consult and Med Hx Date of service: 12/08/20 - Airway Anesthetic Teeth Evaluation: Good ROM Head & Neck: Adequate Mental/Hyoid Distance: Adequate Mallampati Class: Class I Intubation Access Assessment: Good - Pre-Operative Health Status ASA Pre-Surgery Classification: ASA1 Proposed Anesthetic Plan: General - Pulmonary Hx Smoking: No Hx Respiratory Symptoms: No - Cardiovascular System Hx Hypertension: No - Central Nervous System CVA: No - Endocrine Hx Renal Disease: No Hx Liver Disease: No Hx Insulin Dependent Diabetes: No Hx Non-Insulin Dependent Diabetes: No Hx Thyroid Disease: No - Other Systems Hx Obesity: No - Additional Comments Anesthesia Medical History Comments: No hx anesthetic complications.
--- NOTE | 2020-12-08 08:04 | History and Physical Report ---
History of Present Illness Date of examination: 12/08/20 Date of admission: 12/08/20 Chief complaint: abnormal uterine bleeding.possible retained placenta. History of present illness: 35-year-old multipara who had D&C after her last delivery for retained placenta. She still continues to have some abnormal uterine bleeding. And transvaginal ultrasound performed in the office revealed a small area of retained placenta and one corner of the uterus. The patient is admitted as outpatient for D&C diagnostic hysteroscopy. Past History Past Medical History: no pertinent history Past Surgical History: D&C HOCKEY INSTRUCTOR History: other (HX OF HERPES. ON VALTREX.) Family/Genetic History: none Social history: single - Obstetrical History : 3 Medications and Allergies Allergies Allergy/AdvReac Type Severity Reaction Status Date / Time No Known Allergies Allergy Verified 11/18/20 13:19 Home Medications Medication Instructions Recorded Confirmed Last Taken Type valACYclovir [Valtrex] 1 dose PO DAILY 12/05/20 12/05/20 Unknown History Active Meds: Active Medications Lactated Ringer's (Lactated Ringers) 1,000 mls @ 100 mls/hr IV DIRECT MITCH Stop: 12/08/20 23:59 Midazolam HCl (Midazolam 2 Mg/2 Ml Inj) 2 mg IV PREOP NR Stop: 12/08/20 21:00 Scopolamine (Scopolamine Transdermal Patch 72 Hr) 1 each TD PREOP NR Stop: 12/08/20 21:00 Review of Systems All systems: negative - Physical Exam Breasts: Cardiovascular: Regular rate, Normal S1, Normal S2 Lungs: Positive: Clear to auscultation, Normal air movement Abdomen: Positive: normal appearance, soft, normal bowel sounds. Negative: distention, tenderness Genitourinary (Female): Positive: normal external genitalia Vulva: both: normal Vagina: Positive: normal moisture. Negative: discharge Cervix: Negative: lesion, discharge Uterus: Positive: normal size, normal contour Adnexa: both: normal Anus/Rectum: Positive: normal perianal skin, heme negative. Negative: rectal mass, hemorrhoids Extremities: Deep Tendon Reflex Grade: Normal +2 Results All other labs normal. Assessment and Plan Abnormal uterine bleeding with possible retained placenta. Patient will undergo a D&C" hysteroscopy today.
--- NOTE | 2020-12-08 08:04 | Anesthesia Day of Surgery ---
Anesthesia Day of Surgery - Day of Surgery Patient Examined: Yes Patient H&P Reviewed: Yes Patient is NPO: Yes
[2020-12-08] MEDS ORDERED: HYDROcodone/ACETAMINOPHEN 5-325 MG TAB PO PRN (08:30)
[2020-12-08] MEDS ORDERED: HYDROmorphone 1 MG/1 ML INJ IV PRN (08:30)
[2020-12-08] MEDS ORDERED: ONDANSETRON 4 MG/2 ML INJ IV PRN (08:30)
[2020-12-08] MEDS ORDERED: SILVER NITRATE APPLICATOR 1 EA TP ONE (08:33)
[2020-12-08] MEDS ORDERED: KETOROLAC 30 MG/1 ML INJ ONE (09:15)
[2020-12-08] MEDS ORDERED: ONDANSETRON 4 MG/2 ML INJ ONE (09:15)
[2020-12-08] MEDS ORDERED: fentaNYL 100 MCG/2 ML INJ ONE (09:16)
[2020-12-08] MEDS ORDERED: propofoL 200 MG/20 ML VIAL IV ONE (09:16)
[2020-12-08] MEDS ORDERED: dexAMETHasone 20 MG/5 ML VIAL ONE (09:21)
[2020-12-08] MEDS ORDERED: SODIUM CHLORIDE 0.9% IRRIG SOLN 2000 ML IR ONE (09:53)
[2020-12-08] MEDS ORDERED: SODIUM CHLORIDE 0.9% IRR 1,000 ML BOTTLE IR ONE (09:53)
[2020-12-08] MEDS ORDERED: LIDOCAINE MPF (2%) 20 MG/1 ML VIAL 5 ML ONE (10:00)
--- NOTE | 2020-12-08 10:20 | Procedure Note ---
Date of procedure: 12/08/20 Pre-op diagnosis: delayed post bleeding, possible retained placenta Post-op diagnosis: same Procedure: This is dictating operative report. 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 Postop diagnosis same. Anesthesia General with intubation. Drains none Estimated blood loss less than 30. Specimen endometrial curettings. Findings patient found not to have much abnormality on endometrial inspection the hysteroscope. We curetted out little amount of tissue from the endometrial cavity. Complications none. The patient was taken to the operatory evaluation General anesthetic with intubation placed in stirrups and prepped and draped in usual manner exam performed none anesthesia. Patient was prepped and draped in usual manner. Timeout performed Exam showed that the patient had a slightly enlarged uterus and the possibility of a 1 cm fibroid over the anterior uterine wall subsequently the speculum placed inside the vagina cervix was grasped with a tenaculum and a diagnostic hysteroscopy using normal saline as insufflating the vaginal cavity was inspected both the biopsy was seen there was no evidence of any retained tissue from the placenta and the cavity of the uterus. Problem reviewed sharp curettage revealed a minimal amount of tissue and this was sent for pathological inspection after the curettage again (with the hysteroscope but I did not see Substances the cavity of the uterus. See no further procedures are indicated removed from the vagina patient tolerated procedure well she was then returned to recovery room in stable condition end of operative note on Yanira Us by Dr. Sarmiento thank you. Anesthesia: GETA Surgeon: MARTÍNEZ PERKINS Estimated blood loss: minimal Pathology: list (endometrial currettings.) Specimen disposition: to lab Condition: stable Disposition: PACU
[2020-12-08 21:12] VITALS: BP 132/83
== END 2020-12-08 07:10 | disposition home or self-care (01) ==
LOC: OR 07:09
DX: O72.2 Delayed and secondary postpartum hemorrhage (principal); N85.8 Other specified noninflammatory disorders of uterus; D64.9 Anemia, unspecified; Z79.899 Other long term (current) drug therapy; Z83.3 Family history of diabetes mellitus; Z80.8 Family history of malignant neoplasm of other organs or systems; Z82.49 Family history of ischemic heart disease and other diseases of the circulatory system
CPT/HCPCS: 58558; 81025; 88305; A4217; J1100; J1885; J2250; J2405; J2704; J3010; J7120; J1170